=== PATIENT | female | born 1955 | race Caucasian/White ===

== ENCOUNTER → 2018-05-31 | Outpatient (CLI) | payer OTHER ==
[~2018-05-31] VITALS: Ht 165.1 cm; Wt 130.5 kg
[~2018-05-31] MED LIST: COREG 6.256.25 MG/TA PO; LASIX 20MG TABL20 MG PO; PRAVACHOL 20MG20 MG PO; SYNTHROID 0.0.025 MG PO
[2018-05-31 12:17] VITALS: BP 156/79; PULSE 82
[2018-05-31 14:00] VITALS: BP 123/58; PULSE 93
[2018-05-31 14:15] VITALS: BP 128/57; PULSE 75
[2018-05-31 14:30] VITALS: BP 131/58; PULSE 78
== END ==
LOC: COL.RAD 11:26
DX: M48.061 Spinal stenosis, lumbar region without neurogenic claudication (principal); M99.73 Connective tissue and disc stenosis of intervertebral foramina of lumbar region; M47.816 Spondylosis without myelopathy or radiculopathy, lumbar region; M54.32 Sciatica, left side
CPT/HCPCS: J2250; J2704; J3010

== ENCOUNTER 2018-09-21 10:00 | Inpatient (IN) | payer OTHER ==
[~2018-09-21] VITALS: Ht 165.1 cm; Wt 129.4 kg
[2018-10-23] VITALS (10 sets, daily range): BP systolic 105–148; BP diastolic 43–69; PULSE 63–85; TEMP 97.6–98.6
[2018-10-23] MEDS ORDERED: FLEXERIL5 MG PO (08:28)
[2018-10-23] MEDS ORDERED: MULTI-VITAMIN W1 TA2 PO (08:45)
[2018-10-23] MEDS ORDERED: VITAMIN B COMPL1 SGL PO (08:46)
[2018-10-23] MEDS ORDERED: VITAMIN D31000 I1 PO (08:46)
[2018-10-23] MEDS ORDERED: VITAMIN C500 MG PO (08:46)
--- NOTE | 2018-10-23 10:25 | NUR ---
Initial visit; Patient thanked [employer] for looking in on her, offering God's blessings and keeping her in [employer]'s prayers.
--- NOTE | 2018-10-23 16:10 | NUR ---
PATIENT BACK IN ROOM 329 POST OP RTK. A&O. VSS. MOVING BLE BUT NO C/O PAIN. RTK DRESSING IS CD&I WITH AQUACEL AND CRYOCUFF INPLACE. TEDS & SCD'S TO BLE. POSITIVE PEDAL PULSES. FLORES TO DEPENDENT DRAINAGE WITH SMALL AMOUNTS OF CLEAR YELLOW URINE NOTED. IV FLUIDS INFUSING INTO LEFT WRIST VIA PUMP. NO C/O N/V. LIQUIDS AT BEDSIDE. HEAD TO TOE ASSESSMENT WNL. NOW AT BEDSIDE. ORIENTED TO ROOM. CALL LIGHT IN REACH.
--- NOTE | 2018-10-23 20:30 | NUR ---
Assessment completed. Patient is A&O x 4. VSS, currently on 3 liters of supplemental O2 via nasal cannula per orders. Pain controlled at this time with current oral medication. Aquacell dressing to right knee is CDI with cryocuff maintained ot knee. Pedal pulses intact. BLE liss hose/scds on. Encouraged ankle pumps while laying in bed. Hamilton catheter to DD with yellow clear urine draining. Tolerating diet with no c/o nausea. IVF infusing with intermittent antibiotic per orders. Ambulated approximately 25 feet this evening before becoming nauseous and stating she was hot and felt like she could pass out, assisted back to bed and repositioned. Patient never did pass out and vitals maintained stable. Bed remains in a low position with call light in reach.
[2018-10-24] VITALS (7 sets, daily range): BP systolic 126–153; BP diastolic 49–77; PULSE 69–102; TEMP 97.5–98.7
--- NOTE | 2018-10-24 06:03 | NUR ---
Patient has rested intermittently through the night. VSS, on room air. Alternating Lankin/Mony for pain control. Aquacell dressing to right knee remains CDI with crycuff maintained to knee. Denies any concerns or needs this morning. Bed remains in a low position with call light in reach.
[2018-10-24 06:27] LABS: HEMOGLOBIN 11.7 g/dl (12.5-16.0)
[2018-10-24 06:33] LABS: HEMATOCRIT 35.4 % (37.0-47.0)
--- NOTE | 2018-10-24 08:00 | NUR ---
PATIENT IS A&O. VSS. RATES PAIN RLE AT 4-5 ON PAIN SCALE. PATIENT REQUESTING SOMETHING FOR PAIN JUST BEFORE THERAPY. RTK DRESSING IS CD&I WITH AQUACEL AND CRYOCUFF INPLACE. TEDS TO BLE. SCD'S CURRENTLY OFF. POSITIVE PEDAL PULSES TO BLE. DC'D FLORES PER ORDERS. NO MOD AMOUNTS OF CLEAR YELLOW URINE. IV TO INT. NO C/O N/V. BREAKFAST AT BEDSIDE. AM MEDS GIVEN. HEAD TO TOE ASSESSMENT WNL. NO OTHER NEEDS. AT BEDSIDE. CALL LIGHT IN REACH.
--- NOTE | 2018-10-24 10:32 | NUR ---
CHANDRA met with the patient and patient's , Sagar, to discuss discharge plan. The patient lives in [place] with her . She reports independence with ADLs and has a cane and two walkers. The patient's PCP is Dr. Guanako Myers and she receives her medications at [id number]. She reports no difficulties obtaining her meds. The patient was interested in completing DPO[facility]. CHANDRA and the patient's aide witnessed the patient sign. The patient was provided with the original and some copies. A copy was placed in the patient's chart. The patient plans to return home with her upon discharge. No additional needs at this time.
[2018-10-24] MEDS ORDERED: NORCO 325 MG-7.1 TAB PO (12:54)
[2018-10-24] MEDS ORDERED: ASPI325T6 PO (12:54)
[2018-10-24] MEDS ORDERED: ROXICODONE 55 MG/TAB PO (12:55)
[2018-10-24] MEDS ORDERED: TYLENOL 500MG500 MG PO (12:55)
[2018-10-24] MEDS ORDERED: ZANTAC 150MG T150 MG PO (12:55)
--- NOTE | 2018-10-24 20:45 | NUR ---
Assessment completed. Patient is A&O x 4. VSS, on room air. Right knee pain controlled with alternating Frost/Mony at this time. Aquacell dressing to right knee remains CDI with a cryocuff maintained. Pedal pulses intact. BLE liss hose/scds on. Encouraged ankle pumps. Tolerating diet with no c/o nausea. Voiding with no difficulities. Up with assist x 1 with walker and gait belt, gait is steady. Ambulated approxiamtely 100 feet this evening in the hallway with staff. Denies any concerns or needs, call light is within reach.
[2018-10-25 01:07] VITALS: BP 128/52; PULSE 96; TEMP 98.9
--- NOTE | 2018-10-25 04:59 | NUR ---
Patient has rested well through the night. VSS. Pain has been controlled with current oral regimen. Aquacell dressing to right knee remains CDI with cryocuff maintained to knee. Patient has been up with standby assist to use the restroom through the night with a steady gait. has been at bedside. Denies any concerns or needs, call light remains within reach.
[2018-10-25 05:31] VITALS: BP 133/60; PULSE 86; TEMP 98.6
--- NOTE | 2018-10-25 06:40 | NUR ---
bedside shift report received from Claudia RN, Diane WOOD in to see patient
--- NOTE | 2018-10-25 07:04 | NUR ---
resting in recliner, full assessment completed, see interventions for further info, at bedside
[2018-10-25 07:11] VITALS: BP 134/74; PULSE 91; TEMP 98
--- NOTE | 2018-10-25 08:40 | NUR ---
resting in bed with right leg elevated, medicated with hydrocodone 7.5mg 2 tabs for c/os pain and in anticipation of therapy
--- NOTE | 2018-10-25 09:25 | NUR ---
ambulated out to [place] with physical therapy for group exercises
--- NOTE | 2018-10-25 10:16 | NUR ---
back to room after therapy and occupational therapy now in to assist her with taking a shower
--- NOTE | 2018-10-25 10:50 | NUR ---
aquacel dressing to right knee removed, haresh instact, cleaned with betadine and then new aquacel placed
[2018-10-25 11:42] VITALS: BP 134/65; PULSE 99; TEMP 97.6
--- NOTE | 2018-10-25 12:15 | NUR ---
resting in chair awaiting therapy
--- NOTE | 2018-10-25 13:40 | NUR ---
discharge instructions given to patient and her , verbalizes understanding
--- NOTE | 2018-10-25 14:00 | NUR ---
discharged per WC
== END 2018-10-25 14:00 | disposition home or self-care (01) | DRG 470 ==
LOC: JCC 10-23 07:26
PROVIDERS: ADMIT Orthopaedic Surgery
PROC: 0SRC0J9 Replacement of Right Knee Joint with Synthetic Substitute, Cemented, Open Approach (ICD-10-PCS; principal; 2018-10-23 13:55)
DX: M17.11 Unilateral primary osteoarthritis, right knee (principal); Z68.42 Body mass index [BMI] 45.0-49.9, adult; I10 Essential (primary) hypertension; Z87.891 Personal history of nicotine dependence; E78.5 Hyperlipidemia, unspecified; E66.8 Other obesity; G47.33 Obstructive sleep apnea (adult) (pediatric)
CPT/HCPCS: A4314; A9284; C1713; C1776; J0690; J2250; J2704; J3010; J7120

== ENCOUNTER → 2018-10-16 | Outpatient (CLI) | payer OTHER ==
[2018-10-16 12:23] LABS: HIV 1/2 Antibodies Non-Reactive; HIV-1p24 Antigen Non-Reactive
== END ==
LOC: COL.LAB 10:47
PROVIDERS: Orthopaedic Surgery
DX: Z01.812 Encounter for preprocedural laboratory examination (principal); M17.11 Unilateral primary osteoarthritis, right knee